=== PATIENT | male | born 1985 | race Caucasian/White ===

== ENCOUNTER 2017-08-21 16:43 | Emergency (ER) | payer MEDICARE, MEDICAID ==
[~2017-08-21] VITALS: Ht 182.9 cm; Wt 88.6 kg
[~2017-08-21 16:43] MED LIST: MUPI1OIN8 BOTHNARES
[2017-08-21] MEDS ORDERED: SULF1TAB49 PO (17:17)
[2017-08-21] MEDS ORDERED: sulfamethoxazole/trimethoprim DS (800/160mg) tablet PO ONE (17:20)
[2017-08-21 17:34] VITALS: BP 120/68
== END 2017-08-21 17:36 | disposition home or self-care (01) ==
LOC: ER 16:43
DX: L02.414 Cutaneous abscess of left upper limb (principal); F12.10 Cannabis abuse, uncomplicated
CPT/HCPCS: 99282; 99284

== ENCOUNTER 2019-10-09 18:01 | Emergency (ER) | payer MEDICARE, MEDICAID ==
[~2019-10-09] VITALS: Ht 185.4 cm; Wt 93.8 kg
[2019-10-09 19:29] LABS: CLARITY,URINE CLEAR (Clear); COLOR,URINE YELLOW (Yellow); GLUCOSE, URINE NEGATIVE (Neg); KETONES,URINE NEGATIVE (Neg); LEUKOCYTE ESTERASE ,URINE NEGATIVE (Neg); NITRITES, URINE NEGATIVE (Neg); OCCULT BLOOD,URINE NEGATIVE (Neg); PH,URINE 6.5 (4.8-8.0); PROTEIN,URINE NEGATIVE (Neg)
[2019-10-09 19:30] LABS: UA COLLECTION TYPE VOIDED
[2019-10-09 19:41] VITALS: BP 113/60
[2019-10-09 20:10] LABS: URINE AMPHETAMINE SCREEN POSITIVE (Neg); URINE BARBITUATE SCREEN NEGATIVE (Neg); URINE BENZODIAZEPINES SCREEN NEGATIVE (Neg); URINE CANNABINOID SCREEN POSITIVE (Neg); URINE COCAINE SCREEN NEGATIVE (Neg); URINE METHADONE SCREEN NEGATIVE (Neg); URINE OPIATE SCREEN POSITIVE (Neg); URINE PHENCYCLIDINE SCREEN NEGATIVE (Neg)
== END 2019-10-09 19:42 | disposition home or self-care (01) ==
LOC: ER 18:02
DX: R10.9 Unspecified abdominal pain (principal); F41.9 Anxiety disorder, unspecified; F32.9 Major depressive disorder, single episode, unspecified; F12.90 Cannabis use, unspecified, uncomplicated; Z79.899 Other long term (current) drug therapy
CPT/HCPCS: 80305; 81003; 99283